=== PATIENT | female | born 1995 | race American Indian/Alaskan Native ===

== ENCOUNTER 2021-02-13 14:34 | Emergency (ER) | payer SELFPAY ==
[2021-02-13 18:24] LABS: Bilirubin,Urine NEG (Negative); Blood,Urine NEG (Negative); Color,Urine Colorless (Yellow); Protein,Urine <15 mg/dL mg/dL (Negative); Urobilinogen,Urine < 2.0 mg/dL (<2.0); WBC,Urine < 1.0 /HPF (0.0-6.0)
[2021-02-13 18:26] LABS: HCG Qualitative,Urine Negative (Negative)
--- NOTE | 2021-02-13 18:26 | Emergency Department Report ---
ED Abdominal Pain HPI - General Chief Complaint: Abdominal Pain Stated Complaint: ABD PAIN Time Seen by Provider: 02/13/21 18:10 Source: patient Mode of arrival: Ambulatory Limitations: No Limitations - History of Present Illness Initial Comments: Patient is a 25-year-old female presents emergency room complaints of lower abdominal pain that began a couple days ago. Patient reports that she took lssz-nuj-bogkhmk home test and states that they were positive. She states her last menstrual cycle was 12/19/2020. She has not seen anybody for this . She denies any vaginal bleeding, fever, nausea, vomiting, diarrhea, urinary symptoms, dysuria. Past medical history of ectopic no allergies to medications. /P: 2/A: 3 Severity scale (0 -10): 6 - Related Data Allergies Allergy/AdvReac Type Severity Reaction Status Date / Time No Known Allergies Allergy Unverified 05/13/19 22:04 ED Review of Systems ROS: Stated complaint: ABD PAIN Other details as noted in HPI Comment: All other systems reviewed and negative ED Past Medical Hx - Surgical History Additional Surgical History: c-sec x 2 - Social History Smoking Status: Never Smoker ED Physical Exam - General Limitations: No Limitations General appearance: alert, in no apparent distress - Head Head exam: Present: atraumatic, normocephalic - Eye Eye exam: Present: normal appearance - ENT ENT exam: Present: mucous membranes moist - Respiratory Respiratory exam: Present: normal lung sounds bilaterally. Absent: respiratory distress, wheezes, rales, rhonchi, stridor, chest wall tenderness, accessory muscle use, decreased breath sounds, prolonged expiratory - Cardiovascular Cardiovascular Exam: Present: regular rate, normal rhythm, normal heart sounds. Absent: systolic murmur, diastolic murmur, rubs, gallop - GI/Abdominal GI/Abdominal exam: Present: soft, normal bowel sounds. Absent: distended, tenderness, guarding, rebound, rigid - Neurological Exam Neurological exam: Present: alert, oriented X3 - Psychiatric Psychiatric exam: Present: normal affect, normal mood - Skin Skin exam: Present: warm, dry, intact ED Course Vital Signs 02/13/21 15:24 Temperature 98.1 F Pulse Rate 77 Respiratory 18 Rate Blood Pressure 90/49 [Right] ED Medical Decision Making - Lab Data Result diagrams: 02/13/21 18:25 02/13/21 18:25 - Medical Decision Making Patient is a 25-year-old female presents emergency room complaints of lower abdominal pain that began a couple days ago. Patient reports that she took oijo-okj-yacaudk home test and states that they were positive. She states her last menstrual cycle was 12/19/2020. She has not seen anybody for this . She denies any vaginal bleeding, fever, nausea, vomiting, diarrhea, urinary symptoms, dysuria. Past medical history of ectopic no allergies to medications. /P: 2/A: 3. No abdominal tenderness on exam. Labs are stable. hCG quant is less than 2. UA is within normal limits. Discussed all findings with patient. Advised patient that she need to follow-up outpatient with BODY FITTER regarding her missed menses/irregular cycles. Advised patient Please follow-up with B[facility] regarding your irregular menstrual cycle. Please follow-up with a primary care doctor. Return to emergency room for any new or worsening symptoms. Critical care attestation.: If time is entered above; I have spent that time in minutes in the direct care of this critically ill patient, excluding procedure time. ED Disposition Clinical Impression: Lower abdominal pain, Missed menses Disposition: 01 HOME / SELF CARE / HOMELESS Is pt being admited?: No Does the pt Need Aspirin: No Condition: Stable Instructions: Abdominal Pain (ED) Additional Instructions: Please follow-up with B[facility] regarding your irregular menstrual cycle. Please follow-up with a primary care doctor. Return to emergency room for any new or worsening symptoms. Referrals: PRIMARY CARE, [Primary Care Provider] - 3-5 Days KATHARINA ASTORGA MD [Staff Physician] - 3-5 Days Forms: Work/School Release Form(ED) Time of Disposition: 19:29 Print Language: BRUNEIAN
[2021-02-13 19:07] LABS: Basophils % (Auto) 0.6 % (0.0-1.8); Eosinophils # (Auto) 0.1 K/mm3 (0.0-0.4); Eosinophils % (Auto) 2.5 % (0.0-4.3); Hematocrit 39.4 % (30.3-42.9); Hemoglobin 12.6 gm/dl (10.1-14.3); Lymphocytes # (Auto) 1.8 K/mm3 (1.2-5.4); Lymphocytes % (Auto) 42.4 % (13.4-35.0); Mean Corpuscular HGB Conc 32 % (30-34); Mean Corpuscular Volume 90 fl (79-97); Monocytes # (Auto) 0.4 K/mm3 (0.0-0.8); Monocytes % (Auto) 9.6 % (0.0-7.3); Platelet Count 212 K/mm3 (140-440); Red Blood Count 4.36 M/mm3 (3.65-5.03); Red Cell Distribution Width 12.2 % (13.2-15.2)
[2021-02-13 19:18] LABS: Alanine Aminotransferase 7 units/L (7-56); Blood Urea Nitrogen 9 mg/dL (7-17); Calcium 9.3 mg/dL (8.4-10.2); Hemolysis Index 5
[2021-02-13 19:22] LABS: BUN/Creatinine Ratio 15
[2021-02-14 05:08] VITALS: BP 115/71
== END 2021-02-13 19:45 | disposition home or self-care (01) ==
LOC: ED 14:34
DX: R10.30 Lower abdominal pain, unspecified (principal); N92.6 Irregular menstruation, unspecified
CPT/HCPCS: 36415; 80053; 81001; 81025; 84702; 85025; 99283

== ENCOUNTER 2021-03-07 11:37 | Emergency (ER) | payer SELFPAY ==
[2021-03-07 12:33] VITALS: BP 96/73
[2021-03-07 15:48] LABS: HCG Qualitative,Urine Negative (Negative)
--- NOTE | 2021-03-07 16:06 | Emergency Department Report ---
ED General Adult HPI - General Chief complaint: Nausea/Vomiting/Diarrhea Stated complaint: FEVER,VOMITTING Time Seen by Provider: 03/07/21 14:16 Source: patient Mode of arrival: Ambulatory Limitations: No Limitations - History of Present Illness Initial comments: Patient is a 25-year-old female presents emergency room stating that she believes she is . She states that she took ulfx-qga-cgzhnos test and reports they were positive. Patient states that she has had some intermittent cramping and nausea. She denies any bleeding. She presents here due to wanting a test. No past medical history. No allergies to medications. - Related Data Allergies Allergy/AdvReac Type Severity Reaction Status Date / Time No Known Allergies Allergy Unverified 05/13/19 22:04 ED Review of Systems ROS: Stated complaint: FEVER,VOMITTING Other details as noted in HPI Comment: All other systems reviewed and negative ED Past Medical Hx - Past Medical History Previous Medical History?: No - Surgical History Past Surgical History?: Yes Additional Surgical History: c-sec x 2 - Social History Smoking Status: Never Smoker ED Physical Exam - General Limitations: No Limitations General appearance: alert, in no apparent distress - Head Head exam: Present: atraumatic, normocephalic - Eye Eye exam: Present: normal appearance - ENT ENT exam: Present: mucous membranes moist - Respiratory Respiratory exam: Absent: respiratory distress, accessory muscle use - GI/Abdominal GI/Abdominal exam: Present: soft. Absent: distended, tenderness, guarding, rebound, rigid - Neurological Exam Neurological exam: Present: alert, oriented X3 - Psychiatric Psychiatric exam: Present: normal affect, normal mood - Skin Skin exam: Present: warm, dry, intact ED Course Vital Signs 03/07/21 12:30 Temperature 98.5 F Pulse Rate 84 Respiratory 16 Rate Blood Pressure 96/73 [Left] O2 Sat by Pulse 100 Oximetry ED Medical Decision Making - Lab Data Lab Results 03/07/21 Range/Units 15:05 Urine Color Yellow (Yellow) Urine Turbidity Clear (Clear) Urine pH 7.0 (5.0-7.0) Ur Specific [place] 1.012 (1.003-1.030) Urine Protein <15 mg/dl (Negative) mg/dL Urine Glucose (UA) Neg (Negative) mg/dL Urine Ketones Neg (Negative) mg/dL Urine Blood Neg (Negative) Urine Nitrite Neg (Negative) Ur Reducing Substances Not Reportable Urine Bilirubin Neg (Negative) Urine Ictotest Not Reportable Urine Urobilinogen < 2.0 (<2.0) mg/dL Ur Leukocyte Esterase Neg (Negative) Urine WBC (Auto) < 1.0 (0.0-6.0) /HPF Urine RBC (Auto) 1.0 (0.0-6.0) /HPF U Epithel Cells (Auto) 21.0 H (0-13.0) /HPF Urine Bacteria (Auto) 1+ (Negative) /HPF Urine Mucus Few /HPF Urine HCG, Qual Negative (Negative) - Medical Decision Making Patient is a 25-year-old female presents emergency room stating that she believes she is . She states that she took hjpi-dwj-yqzyuln test and reports they were positive. Patient states that she has had some intermittent cramping and nausea. She denies any bleeding. She presents here due to wanting a test. No past medical history. No allergies to medications. Urine is negative. UA shows many epithelial cells, likely due to contamination, patient is not having urinary symptoms, do not suspect UTI. I advised patient again that she is not and she needs to follow-up with SET UP OPERATOR. Follow-up with SET UP OPERATOR. Return to emergency room for any new or worsening symptoms. Critical care attestation.: If time is entered above; I have spent that time in minutes in the direct care of this critically ill patient, excluding procedure time. ED Disposition Clinical Impression: Missed menses Disposition: 01 HOME / SELF CARE / HOMELESS Is pt being admited?: No Does the pt Need Aspirin: No Condition: Stable Additional Instructions: Follow-up with SET UP OPERATOR. Return to emergency room for any new or worsening symptoms. Referrals: LAMONTE LYON MD [Staff Physician] - 3-5 Days Time of Disposition: 16:25 Print Language: QATARI
[2021-03-07 16:15] LABS: Bacteria,Urine 1+ /HPF (Negative); Bilirubin,Urine NEG (Negative); Blood,Urine NEG (Negative); Color,Urine Yellow (Yellow); Mucus,Urine FEW /HPF; Protein,Urine <15 mg/dL mg/dL (Negative); Urobilinogen,Urine < 2.0 mg/dL (<2.0); WBC,Urine < 1.0 /HPF (0.0-6.0)
== END 2021-03-07 16:40 | disposition home or self-care (01) ==
LOC: ED 11:37
DX: N92.6 Irregular menstruation, unspecified (principal)
CPT/HCPCS: 81001; 81025; 99283

== ENCOUNTER 2021-06-26 17:21 | Emergency (ER) | payer SELFPAY ==
[2021-06-26 17:43] VITALS: BP 118/71
== END 2021-06-26 20:52 | disposition left against medical advice (07) ==
LOC: ED 17:21
DX: R07.9 Chest pain, unspecified (principal); Z53.21 Procedure and treatment not carried out due to patient leaving prior to being seen by health care provider

== ENCOUNTER 2021-06-28 10:26 | Emergency (ER) | payer SELFPAY ==
[2021-06-28 12:14] VITALS: BP 112/66
[2021-06-28 14:14] LABS: HCG Qualitative,Urine Negative (Negative)
[2021-06-28 14:18] LABS: Bilirubin,Urine NEG (Negative); Blood,Urine SM (Negative); Color,Urine Colorless (Yellow); Hyaline Casts,Urine 1 /LPF; Mucus,Urine FEW /HPF; Protein,Urine <15 mg/dL mg/dL (Negative); RBC,Urine < 1.0 /HPF (0.0-6.0); Urobilinogen,Urine < 2.0 mg/dL (<2.0); WBC,Urine < 1.0 /HPF (0.0-6.0)
--- NOTE | 2021-06-28 14:32 | Emergency Department Report ---
ED Female HPI - General Chief complaint: Chest Pain Stated complaint: CHEST PAIN/10 WKS PREG Time Seen by Provider: 06/28/21 14:09 Source: patient Mode of arrival: Ambulatory Limitations: No Limitations - History of Present Illness Initial comments: Patient is a 25-year-old female that comes to the emergency room complaining of chest pain and being 10 weeks . This is what she told the triage nurse. When she got back to fast-track she was yelling and carrying on with the nurses that she was in pain and what organ to do about it. When I arrived in the room she was calm. She reports her last menstrual period 4 7. She states however she is 10 weeks . This would be her 11th . She has had 2 ectopics. She has 2 living children. Patient denies any drugs or alcohol. She denies any home medications. Patient denies any abdominal pain. She denies any vaginal discharge or bleeding. I explained to the patient that given that she was in pain the only medication that she could have is Tylenol given her . She verbalizes understanding. She had an EKG done upfront was no acute process. During our conversation the patient endorses that she wants to confirm that she is . However, she reports that she gave urine upfront. The nurses then asked her to give urine in fast track, because they could not find the urine. The nurses of the impression that the patient filled the urine cup with water. Complaint: other Improves with: none Worsens with: none Associated Symptoms: denies other symptoms - Related Data Sexually active: Yes Allergies Allergy/AdvReac Type Severity Reaction Status Date / Time No Known Allergies Allergy Verified 06/28/21 12:14 ED Review of Systems ROS: Stated complaint: CHEST PAIN/10 WKS PREG Other details as noted in HPI Comment: All other systems reviewed and negative ED Past Medical Hx - Past Medical History Previous Medical History?: No - Surgical History Past Surgical History?: Yes Additional Surgical History: c-sec x 2 - Family History Family history: no significant - Social History Smoking Status: Never Smoker Substance Use Type: None ED Physical Exam - General Limitations: No Limitations General appearance: alert, in no apparent distress - Head Head exam: Present: atraumatic, normocephalic - Eye Eye exam: Present: normal appearance - ENT ENT exam: Present: mucous membranes moist - Neck Neck exam: Present: normal inspection - Respiratory Respiratory exam: Present: normal lung sounds bilaterally. Absent: respiratory distress - Cardiovascular Cardiovascular Exam: Present: regular rate, normal rhythm. Absent: systolic murmur, diastolic murmur, rubs, gallop - GI/Abdominal GI/Abdominal exam: Present: soft, normal bowel sounds - Extremities Exam Extremities exam: Present: normal inspection - Back Exam Back exam: Present: normal inspection - Neurological Exam Neurological exam: Present: alert, oriented X3 - Psychiatric Psychiatric exam: Present: normal affect, normal mood - Skin Skin exam: Present: warm, dry, intact, normal color. Absent: rash ED Course Vital Signs 06/28/21 12:13 Temperature 68.3 F L Pulse Rate 91 H Respiratory 16 Rate Blood Pressure 112/66 O2 Sat by Pulse 100 Oximetry ED Medical Decision Making - Medical Decision Making Labs 06/28/21 Unknown Urine Color Colorless Urine Turbidity Clear Urine pH 6.0 Ur Specific [place] 1.003 Urine Protein <15 mg/dl Urine Glucose (UA) Neg Urine Ketones Neg Urine Blood Sm Urine Nitrite Neg Ur Reducing Substances Not Reportable Urine Bilirubin Neg Urine Ictotest Not Reportable Urine Urobilinogen < 2.0 Ur Leukocyte Esterase Neg Urine WBC (Auto) < 1.0 Urine RBC (Auto) < 1.0 U Epithel Cells (Auto) 8.0 Hyaline Casts 1 Urine Mucus Few Urine HCG, Qual Negative Vital Signs 06/28/21 12:13 Temperature 68.3 F L Pulse Rate 91 H Respiratory 16 Rate Blood Pressure 112/66 O2 Sat by Pulse 100 Oximetry Patient informed of the above results. She then started to yell about her first urinalysis. She states that she is well-hydrated and that is why this urine is negative. She is yelling and requesting blood work. She has no abdominal pain, she denies any vaginal bleeding. She is ambulatory with normal vital signs. Her temperature as corrected by the RN was 98. I explained to her that she needs follow-up with COUNTING MACHINE OPERATOR to get to the bottom of this concern. She has been given a referral. Patient discharged home with discharge plan of care including diet, activity, medication and follow-up with COUNTING MACHINE OPERATOR. Patient grabbed papers out of my hand and walked off the unit without signing. - Differential Diagnosis Rule out Critical care attestation.: If time is entered above; I have spent that time in minutes in the direct care of this critically ill patient, excluding procedure time. ED Disposition Clinical Impression: test negative Disposition: 01 HOME / SELF CARE / HOMELESS Is pt being admited?: No Does the pt Need Aspirin: No Condition: Stable Additional Instructions: Follow-up with COUNTING MACHINE OPERATOR Referrals: VICENTE THURMAN MD [Staff Physician] - 3-5 Days Time of Disposition: 14:32
--- NOTE | 2021-06-29 11:29 | Electrocardiograph Report ---
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
== END 2021-06-28 18:44 | disposition home or self-care (01) ==
LOC: ED 10:26
DX: R07.89 Other chest pain (principal); Z32.02 Encounter for pregnancy test, result negative; Z98.890 Other specified postprocedural states; Z79.899 Other long term (current) drug therapy
CPT/HCPCS: 81001; 81025; 93005; 99283